=== PATIENT | female | born 1955 | race Caucasian/White ===

== ENCOUNTER 2017-07-23 06:33 | Day surgery (SDC) | payer BC ==
[~2017-07-23] VITALS: Ht 165.1 cm; Wt 72.6 kg
[~2017-07-23 06:33] MED LIST: ACID CONTROL150 MG PO; CALCIUM 600 MG1 EACH PO; CLARITIN-D 121 EACH PO; LO-DOSE ASPIRIN81 M2 PO; ONE DAILY WOME1 EACH PO; PRAVACHOL40 MG PO
[2017-07-23] MEDS ORDERED: ATIVAN0.5 MG PO (07:45)
[2017-07-23 07:48] VITALS: BP 129/67
[2017-07-23] MEDS ORDERED: HYDROCODON-ACE1 EAC7 PO (14:51)
[2017-07-23 17:15] VITALS: BP 145/67
[2017-07-23 17:57] VITALS: BP 120/65
== END 2017-07-23 18:10 | disposition home or self-care (01) ==
LOC: SDC 06:33 → NUC 09:00 → SDC 09:00
DX: C50.211 Malignant neoplasm of upper-inner quadrant of right female breast (principal); K21.9 Gastro-esophageal reflux disease without esophagitis; Z79.82 Long term (current) use of aspirin
CPT/HCPCS: 78195; 78999; 88305; 88307; A9541; J0690; J1100; J1885; J2250; J2405; J3010; S0020